=== PATIENT | male | born 2005 | race Caucasian/White ===

== ENCOUNTER 2024-04-15 21:09 | Emergency (ER) | payer OTHER, SELFPAY ==
[2024-04-15 21:16] VITALS: BP 133/74; PULSE 69; TEMP 37.5; O2SAT 99; BMI 21.0
[2024-04-15] MEDS: FLUORESCEIN SODIUM 1 MG STRIP OP (21:18)
--- NOTE | 2024-04-15 21:41 | ED.EYEPROB1 ---
HPI - Eye Problem General Chief complaint: Eye Problems Stated complaint: foreign object in eye Time Seen by Provider: 04/15/24 21:15 Mode of arrival: walk-in Limitations: no limitations History of Present Illness HPI Narrative: Male presents for eye injury. He was mowing grass and an unknown object hit him in the right eye area just before coming into the emergency department. The left eye is unaffected. He states his vision is blurred but it is not as bad as it was when it initially happened. He does not wear glasses or contacts. He had a tetanus shot about a year ago. Related Data Allergies Allergy/AdvReac Type Severity Reaction Status Date / Time No Known Drug Allergies Allergy Verified 04/15/24 21:21 Review of Systems ROS Narrative A ten point review of systems is negative except as noted above. Exam Narrative Exam Narrative: Nurses note and vital signs reviewed and patient is not hypoxic. General: The patient appears uncomfortable Skin: Warm, dry, no pallor noted. There is no rash noted. Head: Normocephalic, atraumatic Eye: Left eye is normal. He has some bruising below his right eye including the lid. No foreign body is found with examination. He has a reactive left pupil but the right eye is not reactive to light. Extraocular movements are intact. Staining and Hernandez lamp examination show a corneal abrasion covering most of the visual axis. The globe is intact. Lilian test is normal. The right eye has a small lateral subconjunctival hemorrhage. Ears, Nose, Mouth, and Throat: oral mucosa is moist. Nares patent. Cardiovascular: Regular Rate and Rhythm Respiratory: Patient is in no distress, no accessory muscle use, lungs are clear to auscultation, no wheezing, rales or rhonchi Back: non-tender GI: Soft and nontender Musculoskeletal: The patient has no evidence of calf tenderness, no pitting edema, symmetrical pulses noted bilaterally Neurological: Awake and alert and orient Psychiatric: Cooperative Constitutional Vital Signs, click to edit/add: Last Vital Signs Temp 99.5 F 04/15/24 21:16 Pulse 69 04/15/24 21:16 Resp 18 04/15/24 21:16 BP 133/74 04/15/24 21:16 Pulse Ox 99 04/15/24 21:16 O2 Del Method Room Air 04/15/24 21:16 Course Vital Signs Vital signs: Vital Signs Temperature 99.5 F 04/15/24 21:16 Pulse Rate 69 04/15/24 21:16 Respiratory Rate 18 04/15/24 21:16 Blood Pressure 133/74 04/15/24 21:16 Pulse Oximetry 99 04/15/24 21:16 Oxygen Delivery Method Room Air 04/15/24 21:16 Temperature 99.5 F 04/15/24 21:16 Pulse Rate 69 04/15/24 21:16 Respiratory Rate 18 04/15/24 21:16 Blood Pressure 133/74 04/15/24 21:16 Pulse Oximetry 99 04/15/24 21:16 Oxygen Delivery Method Room Air 04/15/24 21:16 MDM - Eye Problem MDM Narrative Medical decision making narrative: The patient has a corneal abrasion and acute iritis. The globe is intact, no ruptured globe. Cyclogyl was applied to his eye and he is going to follow-up with ophthalmology promptly. He was dispensed Bleph-10 and Acular and tetanus is already up-to-date. The importance of prompt follow-up was discussed thoroughly. Differential Diagnosis Differential diagnosis: Likely corneal abrasion, acute iritis, hyphema, subconjunctival hemorrhage and ruptured globe Discharge Plan Discharge Stand Alone Forms: Portal Instructions Chief Complaint: Eye Problems Clinical Impression: Acute iritis, Corneal abrasion, Facial contusion Patient Disposition: Home, Self-Care Time of Disposition Decision: 21:31 Condition: Good Mode of Transportation: Private Vehicle Print Language: Luxem[place]ish Instructions: Iritis (ED), Corneal Abrasion (ED), Facial Contusion (ED) Additional Instructions: Use the Bleph-10 and Acular as prescribed. Call the pigs feet cleaner in the morning for follow-up appointment. Referrals: LIBAN PRADO [Physician] - 1 week Physician,Non-Staff, [Primary Care Provider] - 1 week
[2024-04-15] MEDS: SULFACETAMIDE SODIUM 10% OP 300 DROP/15 ML BOTTLE OP (21:50)
[2024-04-15] MEDS: KETOROLAC TROMETHAMINE 0.5% OP SOL 100 DROP/5 ML BOTTLE OP (21:51)
[2024-04-15] MEDS: CYCLOPENTOLATE HCL 1% OP SOL 40 DROP/2 ML BOTTLE OP (21:52)
[2024-04-15] MEDS: IBUPROFEN 400 MG TABLET 800 MG PO (21:55)
== END 2024-04-15 22:07 | disposition home or self-care (01) ==
PROVIDERS: Emergency Provider Emergency Medicine
DX: S05.01XA Injury of conjunctiva and corneal abrasion without foreign body, right eye, initial encounter (principal); H20.00 Unspecified acute and subacute iridocyclitis; S00.83XA Contusion of other part of head, initial encounter; W22.8XXA Striking against or struck by other objects, initial encounter
CPT/HCPCS: 99284